=== PATIENT | female | born 1960 | race American Indian/Alaskan Native ===

== ENCOUNTER 2021-03-16 09:44 | Emergency (ER) | payer SELFPAY ==
[2021-03-16 09:57] VITALS: BP 151/81
--- NOTE | 2021-03-16 10:00 | Event Note ---
ED Screening Note Date of service: 03/16/21 Time: 10:00 ED Screening Note: Patient complains of shaking and possible panic attack History of depression States she was kicked out of her home last night This initial assessment/diagnostic orders/clinical plan/treatment(s) is/are subject to change based on patients health status, clinical progression and re- assessment by fellow clinical providers in the ED. Further treatment and workup at subsequent clinical providers discretion. Patient/guardian urged not to elope from the ED as their condition may be serious if not clinically assessed and managed. Initial orders include: Labs
[2021-03-16 11:29] LABS: Basophils % (Auto) 0.5 % (0.0-1.8); Eosinophils % (Auto) 0.6 % (0.0-4.3); Hematocrit 35.6 % (30.3-42.9); Hemoglobin 11.9 gm/dl (10.1-14.3); Lymphocytes # (Auto) 2.3 K/mm3 (1.2-5.4); Lymphocytes % (Auto) 38.2 % (13.4-35.0); Mean Corpuscular HGB Conc 33 % (30-34); Mean Corpuscular Volume 86 fl (79-97); Monocytes # (Auto) 0.6 K/mm3 (0.0-0.8); Monocytes % (Auto) 9.4 % (0.0-7.3); Platelet Count 269 K/mm3 (140-440); Red Blood Count 4.17 M/mm3 (3.65-5.03); Red Cell Distribution Width 15.2 % (13.2-15.2)
[2021-03-16 11:42] LABS: BUN/Creatinine Ratio 11; Blood Urea Nitrogen 10 mg/dL (7-17); Calcium 9.8 mg/dL (8.4-10.2); Hemolysis Index 2
[2021-03-16] MEDS ORDERED: POTASSIUM CHLORIDE ER 20 MEQ TAB PO ONE (12:33)
--- NOTE | 2021-03-16 12:34 | Emergency Department Report ---
ED General Adult HPI - General Chief complaint: Psych Stated complaint: ANXIETY PUI?: No Time Seen by Provider: 03/16/21 12:04 Source: patient, EMS ( EMS documentation not available at time of chart dictation ), RN notes reviewed, old records reviewed Mode of arrival: Stretcher Limitations: No Limitations - History of Present Illness Initial comments: The patient is a 60-year-old female with a history of anxiety and elevated blood pressure, who presents to the ER today with a complaint of painless anxiety. The patient states that she is about to get evicted by her landlord. She reports this is causing a lot of stress and anxiety. She reports that she was packing up this morning, and felt very anxious. This morning, she felt like she was not able to sleep, felt generalized body shaking, while staying awake, without physical pain, and thus called 911. Her anxiety and symptoms are basically resolved at this point in time. The patient has no Covid symptomatology. She does not want to overdose. She is not homicidal suicidal. She takes her blood pressure medications, 3, which are prescribed at the [facility]. She endorses compliance with her medications. She endorses medication compliance. At the moment, the patient denies all physical pain. The patient is interested in speaking to case management/social workers about options for housing. -: Sudden Improves with: none Worsens with: none Associated Symptoms: denies other symptoms - Related Data Home Medications Medication Instructions Recorded Confirmed Last Taken Nebivolol HCl [Bystolic] 5 mg PO QDAY 12/31/15 12/31/15 Unknown Previous Rx's Medication Instructions Recorded Last Taken Type Valsartan [Diovan] 160 mg PO QDAY #30 tablet 01/01/16 Unknown Rx Potassium Chloride [K-Dur] 20 meq PO QDAY #60 tablet 03/16/21 Unknown Rx Allergies Allergy/AdvReac Type Severity Reaction Status Date / Time No Known Allergies Allergy Verified 12/30/15 16:40 ED Review of Systems ROS: Stated complaint: ANXIETY Other details as noted in HPI Constitutional: malaise. denies: fever Eyes: denies: eye discharge, vision change ENT: denies: epistaxis Respiratory: denies: cough, shortness of breath Cardiovascular: denies: chest pain Gastrointestinal: denies: abdominal pain Genitourinary: denies: dysuria Psychiatric: anxiety, depression. denies: auditory hallucinations, visual hallucinations, homicidal thoughts, suicidal thoughts ED Past Medical Hx - Past Medical History Hx Hypertension: Yes Hx Congestive Heart Failure: No Hx Diabetes: No Hx Arthritis: Yes Hx Asthma: No Hx COPD: No Hx HIV: No - Surgical History Additional Surgical History: tubal - Social History Smoking Status: Never Smoker - Medications Home Medications: Home Medications Medication Instructions Recorded Confirmed Last Taken Type Nebivolol HCl [Bystolic] 5 mg PO QDAY 12/31/15 12/31/15 Unknown History Valsartan [Diovan] 160 mg PO QDAY #30 tablet 01/01/16 Unknown Rx Potassium Chloride [K-Dur] 20 meq PO QDAY #60 tablet 03/16/21 Unknown Rx ED Physical Exam - General Limitations: No Limitations General appearance: alert, anxious - Head Head exam: Present: atraumatic, normocephalic - Eye Eye exam: Present: normal appearance, PERRL, EOMI, other (Visual acuity intact to finger counting, color perception, reading at a close distance). Absent: nystagmus - ENT ENT exam: Present: normal exam, normal orophraynx, mucous membranes moist, normal external ear exam - Neck Neck exam: Present: normal inspection, full ROM. Absent: tenderness, meningismus - Respiratory Respiratory exam: Present: normal lung sounds bilaterally. Absent: respiratory distress, wheezes, rales, rhonchi, stridor, decreased breath sounds - Cardiovascular Cardiovascular Exam: Present: regular rate, normal rhythm, normal heart sounds. Absent: bradycardia, tachycardia, irregular rhythm, systolic murmur, diastolic murmur, rubs, gallop - GI/Abdominal GI/Abdominal exam: Present: soft. Absent: distended, tenderness, guarding, rebound, rigid, pulsatile mass - Extremities Exam Extremities exam: Present: normal inspection, full ROM, other (2+ pulses noted in the bilateral upper and lower extremities. There is no palpable cord. negative Homans sign. Muscular compartments are soft. The pelvis is stable.). Absent: pedal edema, calf tenderness - Back Exam Back exam: Present: normal inspection, full ROM. Absent: tenderness, CVA tenderness (R), CVA tenderness (L), paraspinal tenderness, vertebral tenderness - Neurological Exam Neurological exam: Present: alert, oriented X3 (Able to add 4+4, subtract 100-7, alert to name, place, location, month and able to name the president), normal gait, reflexes normal (2+ quadriceps reflexes bilaterally. Downgoing plantar reflexes bilaterally), other (No facial droop. Tongue midline. Extraocular movements intact bilaterally. Facial sensation intact to light touch in V1, V2, V3 distribution bilaterally. 5 and a 5 strength in 4 extremities. Sensation intact to light touch in 4 extremities.). Absent: motor sensory deficit - Psychiatric Psychiatric exam: Absent: homicidal ideation - Skin Skin exam: Present: warm, dry, intact, normal color. Absent: rash ED Course Vital Signs 03/16/21 09:53 Temperature 99.5 F Pulse Rate 95 H Respiratory 20 Rate Blood Pressure 151/81 O2 Sat by Pulse 100 Oximetry ED Medical Decision Making - Lab Data Result diagrams: 03/16/21 11:06 03/16/21 11:06 Vital Signs 03/16/21 09:53 Temperature 99.5 F Pulse Rate 95 H Respiratory 20 Rate Blood Pressure 151/81 O2 Sat by Pulse 100 Oximetry Lab Results 03/16/21 03/16/21 03/16/21 Range/Units 11:06 11:06 11:06 WBC 6.1 (4.5-11.0) K/mm3 RBC 4.17 (3.65-5.03) M/mm3 Hgb 11.9 (10.1-14.3) gm/dl Hct 35.6 (30.3-42.9) % MCV 86 (79-97) fl MCH 29 (28-32) pg MCHC 33 (30-34) % RDW 15.2 (13.2-15.2) % Plt Count 269 (140-440) K/mm3 Lymph % (Auto) 38.2 H (13.4-35.0) % [place] % (Auto) 9.4 H (0.0-7.3) % Eos % (Auto) 0.6 (0.0-4.3) % Baso % (Auto) 0.5 (0.0-1.8) % Lymph # (Auto) 2.3 (1.2-5.4) K/mm3 [place] # (Auto) 0.6 (0.0-0.8) K/mm3 Eos # (Auto) 0.0 (0.0-0.4) K/mm3 Baso # (Auto) 0.0 (0.0-0.1) K/mm3 Seg Neutrophils % 51.3 (40.0-70.0) % Seg Neutrophils # 3.1 (1.8-7.7) K/mm3 Sodium 143 (137-145) mmol/L Potassium 3.1 L (3.6-5.0) mmol/L Chloride 103.9 (98-107) mmol/L Carbon Dioxide 27 (22-30) mmol/L Anion Gap 15 mmol/L BUN 10 (7-17) mg/dL Creatinine 0.9 (0.6-1.2) mg/dL Estimated GFR > 60 ml/min BUN/Creatinine Ratio 11 % Glucose 89 (65-100) mg/dL Calcium 9.8 (8.4-10.2) mg/dL Magnesium 2.10 (1.7-2.3) mg/dL Total Creatine Kinase 1032 H (30-135) units/L - Medical Decision Making Differential diagnosis, including but not limited to: Anxiety, panic attack, encounter for medical screening examination, encounter for behavioral health scr eening examination, chronic hypertension, incidental elevated CK, hypokalemia Assessment and plan: 60-year-old female, who was afebrile, with reassuring vital signs, clinically sober, with a GCS of 15, NIH score of 0, who walks with a steady gait, incidental elevated blood pressure not acutely symptomatic or decompensated (please reference the [employer] clinical policy on asymptomatic hypertension), presenting for medical screening examination, with a probable resolved panic attack. From an emergent medical standpoint, this patient does not appear to have an em ergent medical condition present. Laboratory studies were ordered prior to my personal evaluation, and they are fairly unremarkable. We will replete hypokalemia orally, elevated CK reviewed and appreciated, muscular compartments soft, renal function within normal limits, elevated CK should decrease on its own with rest, and copious oral hydration. From a psychiatric standpoint, the patient is awake, alert, oriented, sober, demonstrates a rational and lucid decision making thought process, does not meet criteria for 1013 hold or involuntary hold. She may follow-up as an outpatient for her presumed anxiety. From a social standpoint, this patient demonstrates lucid rational thought process and decision-making ability, and the ability to care for herself independently. She will be given a list of homeless shelters, but she did ask to speak to our egg caserict account manager worker, about resources that may be available to her. This patient is observed in the ER for a few hours without clinical decompensation, and she is medically and psychiatrically suitable for discharge with outpatient follow-up. Critical care attestation.: If time is entered above; I have spent that time in minutes in the direct care of this critically ill patient, excluding procedure time. ED Disposition Clinical Impression: Elevated blood pressure reading, Elevated CK, Hypokalemia, Encounter for medical screening examination, Encounter for behavioral health screening, Case management patient Disposition: DC-01 TO HOME OR SELFCARE Is pt being admited?: No Does the pt Need Aspirin: No Condition: Good Instructions: Hypokalemia, Depression Screening, Hypertension, Adult, [id number] Additional Instructions: We recommend that the patient drink 4 to 5 cups of water per day indefinitely. Please follow-up with a primary care doctor within the next 5 to 7 days for repeat checkup and evaluation. Specifically, we recommend that the patient have repeat laboratory studies obtained to check potassium level, and CK/creatinine kinase level. Please continue current outpatient blood pressure medications. Please take the potassium supplementation as directed. Patient may follow-up with an outpatient primary care doctor or mental health specialist for her presumed anxiety and panic attacks. Please have a primary care doctor contact medical records department to obtain copies of laboratory studies and follow-up on nonemergent incidental findings Please follow-up with the homeless prison resources that have been provided to the patient. Please return to the emergency room right away with new pain, worsened pain, migration of pain, projectile vomiting, change in mental status, confusion, inability to tolerate liquid feeds, new, worsened or different symptoms not present on the initial ER evaluation peer Prescriptions: Potassium Chloride [K-Dur] 20 meq PO QDAY #60 tablet Referrals: DAMIEN FOWLER [Other] - 3-5 Days [facility] [Outside] - 3-5 Days [facility] [Outside] - 3-5 Days
== END 2021-03-16 13:52 | disposition home or self-care (01) ==
LOC: ED 09:44
DX: Z13.30 Encounter for screening examination for mental health and behavioral disorders, unspecified (principal); R03.0 Elevated blood-pressure reading, without diagnosis of hypertension; E87.6 Hypokalemia; R74.8 Abnormal levels of other serum enzymes; I10 Essential (primary) hypertension; F41.9 Anxiety disorder, unspecified; M19.90 Unspecified osteoarthritis, unspecified site; Z79.899 Other long term (current) drug therapy
CPT/HCPCS: 36415; 80048; 82550; 83735; 85025; 99283